=== PATIENT | male | born 1980 | race Caucasian/White ===

== ENCOUNTER 2018-12-14 14:24 | Emergency (ER) | payer BC ==
[~2018-12-14] VITALS: Ht 175.3 cm; Wt 98.0 kg
[2018-12-14 14:34] VITALS: Ht 175.3 cm; Wt 98.0 kg
[2018-12-14] MEDS ORDERED: morphine 4 MG/ML VIAL IV STA (15:11)
[2018-12-14] MEDS ORDERED: ONDANSETRON 4 MG INJ IV STA (15:11)
[2018-12-14] MEDS ORDERED: IOHEXOL 300MG/ML 150 ML BTL ONE (16:27)
[2018-12-14] MEDS ORDERED: SOD CHLORIDE 0.9% 100 ML ONE (16:27)
[2018-12-14] MEDS ORDERED: CIPROFLOXACIN 400MG/D5W 200 ML IVPB ONE (16:30)
[2018-12-14] MEDS ORDERED: ONDA8TAB14 PO (17:53)
[2018-12-14] MEDS ORDERED: METR500T PO (17:53)
[2018-12-14] MEDS ORDERED: CIPR500T4 PO (17:53)
[2018-12-14] MEDS ORDERED: TRAM50TA2 PO (17:53)
--- NOTE | 2018-12-14 17:57 | ERD ---
ER Documentation Chief Complaint Chief Complaint pt bib self with c/o right sided abd pain starting this am HPI 37-year-old male presents with right upper quadrant abdominal pain since this morning. Has nausea without vomiting. Denies any fevers, diarrhea, lower abdominal pain. Patient has a history of intermittent abdominal pain. He was treated for unspecified infection in his stomach several months ago, possibly H. pylori. He has a GI follow-up with a endoscopy scheduled for the next 1-2 weeks. He has never been told he has gallstones. ROS All systems reviewed and are negative except as per history of present illness. Medications Home Meds Active Scripts Ondansetron (Ondansetron Odt) 8 Mg Tab.rapdis, 8 MG PO Q6H PRN for NAUSEA AND/OR VOMITING, #6 TAB Prov:SIRIA RUIZ MD 12/14/18 Metronidazole* (Flagyl*) 500 Mg Tablet, 500 MG PO BID for 7 Days, TAB Prov:SIRIA RUIZ MD 12/14/18 Ciprofloxacin Hcl* (Ciprofloxacin Hcl*) 500 Mg Tablet, 500 MG PO BID for 7 Days, TAB Prov:SIRIA RUIZ MD 12/14/18 Tramadol HCl (Tramadol HCl) 50 Mg Tablet, 50 MG PO Q4 PRN for PAIN, #15 TAB Prov:SIRIA RUIZ MD 12/14/18 Allergies Allergies: Coded Allergies: No Known Allergy (Unverified , 12/14/18) PMhx/Soc Medical and Surgical Hx: pt denies Surgical Hx Hx Miscellaneous Medical Probl: Yes (Fatty Liver) Hx Alcohol Use: No Hx Substance Use: No Hx Tobacco Use: No Smoking Status: Never smoker FmHx Family History: No diabetes, No coronary disease, No other Physical Exam Vitals Vital Signs Date Temp Pulse Resp B/P (MAP) Pulse Ox O2 O2 Flow FiO2 Time Delivery Rate 12/14/18 98.3 66 16 150/78 98 14:34 (102) Physical Exam Const: No acute distress Head: Atraumatic Eyes: Normal Conjunctiva ENT: Normal External Ears, Nose and Mouth. Neck: Full range of motion. No meningismus. Resp: Clear to auscultation bilaterally Cardio: Regular rate and rhythm, no murmurs Abd: Soft, positive Panchal sign. No tenderness McBurney's point. No rebound., non distended. Normal bowel sounds Skin: No petechiae or rashes Back: No midline or flank tenderness Ext: No cyanosis, or edema Neur: Awake and alert Psych: Normal Mood and Affect Result Diagram: 12/14/18 1527 12/14/18 1527 Results 24 hrs Laboratory Tests Test 12/14/18 15:27 White Blood Count 6.1 10^3/ul Red Blood Count 4.95 10^6/ul Hemoglobin 14.4 g/dl Hematocrit 42.7 % Mean Corpuscular Volume 86.3 fl Mean Corpuscular Hemoglobin 29.1 pg Mean Corpuscular Hemoglobin Concent 33.7 g/dl Red Cell Distribution Width 12.4 % Platelet Count 255 10^3/UL Mean Platelet Volume 9.9 fl Immature Granulocytes % 0.200 % Neutrophils % 46.1 % Lymphocytes % 40.4 % Monocytes % 7.0 % Eosinophils % 5.6 % Basophils % 0.7 % Nucleated Red Blood Cells % 0.0 /100WBC Immature Granulocytes # 0.010 10^3/ul Neutrophils # 2.8 10^3/ul Lymphocytes # 2.5 10^3/ul Monocytes # 0.4 10^3/ul Eosinophils # 0.3 10^3/ul Basophils # 0.0 10^3/ul Nucleated Red Blood Cells # 0.0 10^3/ul Urine Color YELLOW Urine Clarity CLEAR Urine pH 6.0 Urine Specific [place] 1.015 Urine Ketones NEGATIVE mg/dL Urine Nitrite NEGATIVE mg/dL Urine Bilirubin NEGATIVE mg/dL Urine Urobilinogen NEGATIVE mg/dL Urine Leukocyte Esterase NEGATIVE Elvis/ul Urine Microscopic RBC 1 /HPF Urine Microscopic WBC 0 /HPF Urine Hemoglobin 1+ mg/dL Urine Glucose NEGATIVE mg/dL Urine Total Protein NEGATIVE mg/dl Sodium Level 140 mmol/L Potassium Level 4.0 mmol/L Chloride Level 106 mmol/L Carbon Dioxide Level 26 mmol/L Anion Gap 8 Blood Urea Nitrogen 13 mg/dl Creatinine 0.66 mg/dl Est Glomerular Filtrat Rate mL/min > 60 mL/min Glucose Level 88 mg/dl Calcium Level 9.4 mg/dl Total Bilirubin 0.3 mg/dl Direct Bilirubin 0.00 mg/dl Indirect Bilirubin 0.3 mg/dl Aspartate Amino Transf (AST/SGOT) 41 IU/L Alanine Aminotransferase (ALT/SGPT) 55 IU/L Alkaline Phosphatase 74 IU/L Total Protein 7.0 g/dl Albumin 4.4 g/dl Globulin 2.60 g/dl Albumin/Globulin Ratio 1.69 Lipase 91 U/L Current Medications Medications Dose Sig/Nori Start Time Status Last (Trade) Ordered Route PRN Stop Time Admin Dose Reason Admin Morphine 4 mg ONCE STAT 12/14/18 DC 12/14/18 Sulfate IV 15:11 12/14/18 15:52 (morphine) 15:12 Ondansetron 4 mg ONCE STAT 12/14/18 DC 12/14/18 HCl (Zofran IV 15:11 12/14/18 15:53 Inj) 15:12 200 ml @ ONCE ONCE 12/14/18 DC 12/14/18 Ciprofloxacin 200 mls/hr IVPB 16:30 12/14/18 16:27 / Dextrose 17:29 Sodium 100 ml @ ud STK-MED 12/14/18 DC 12/14/18 Chloride ONCE .ROUTE 16:27 12/14/18 16:35 16:28 Iohexol 150 ml STK-MED 12/14/18 DC 12/14/18 (Omnipaque ONCE .ROUTE 16:27 12/14/18 16:35 300mg/ ml) 16:28 500 mg ONCE ONCE 12/14/18 Metronidazole PO 18:00 12/14/18 (Flagyl) 18:01 Procedures/MDM Patient presents with right upper quadrant abdominal pain of uncertain etiology. Right upper quadrant ultrasound shows borderline gallbladder wall thickening without stones. BC, CMP, lipase normal. Patient was given morphine 4 mg IV, Zofran [address] abdomen pelvis was performed given the uncertain cause of symptoms which shows similar findings to ultrasound of thickening of the gallbladder wall. He has granulomatous disease which appears chronic in the liver. Patient was given Cipro 400 mg IV except for Flagyl 500 mg by mouth. Patient presents with right upper quadrant abdominal pain since this morning. Findings suggest possible acalculous cholecystitis without findings of leukocyt osis, abscess, surgical abdomen. We will treat empirically with Cipro, Flagyl, medication for pain, nausea and continued outpatient GI follow-up. Currently appears appropriate for outpatient management as he has good outpatient follow- up given the short duration of symptoms. He is advised to return for fevers, vomiting, worsening pain, new worsening symptoms otherwise with GI and primary doctor as scheduled. There is no evidence of appendicitis, surgical abdomen, additional emergent causes of presenting complaints. The patient was stable with no new complaints during the ER course. Clinically, there is no current evidence to suggest meningitis, sepsis, acute abdomen, pneumonia, stroke, acute coronary syndrome, pulmonary embolism, aortic dissection or any other emergent condition appearing to require further evaluation or hospitalization. Patient counseled regarding my diagnostic impression and care plan. Prior to discharge all questions answered. Pt agrees with treatment plan and understands strict return precautions. Pt is instructed to follow up with primary care provider helena akt 24-48 hours. Precautionary instructions provided including instructions to return to the ER if not improving or for any worsening or changing symptoms or concerns. Departure Diagnosis: Primary Impression: Abdominal pain Abdominal location: right upper quadrant Qualified Codes: R10.11 - Right upper quadrant pain Additional Impression: Cholecystitis Condition: Stable Patient Instructions: Abdominal Pain, Cholecystitis, Presumed Additional Instructions: Pain may be from cholecystitis and we will treat for this. No evidence of stones or abnormalities on blood work. See GI as scheduled. Recheck for fevers, vomiting, worsening pain, new worsening symptoms. Avoid fatty foods. SIRIA RUIZ MD Dec 14, 2018 17:57
[2018-12-14] MEDS ORDERED: metroNIDAZOLE 500 MG TAB PO ONE (18:00)
[2018-12-14 18:55] VITALS: BP 136/74; PULSE 60; RESP 20
== END 2018-12-14 18:56 | disposition home or self-care (01) ==
LOC: FTE 14:24
DX: K81.9 Cholecystitis, unspecified (principal)
CPT/HCPCS: 36415; 74177; 76705; 80053; 81001; 83690; 85025; 96365; 96366; 96375; 99285; J0744; J2270; J2405; Q9967

== ENCOUNTER 2018-12-23 18:33 | Emergency (ER) | payer BC ==
[~2018-12-23] VITALS: Ht 175.3 cm; Wt 95.0 kg
[~2018-12-23 18:33] MED LIST: CIPR500T4 PO; METR500T PO; ONDA8TAB14 PO; TRAM50TA2 PO
[2018-12-23 18:45] VITALS: Ht 175.3 cm; Wt 95.0 kg
[2018-12-23] MEDS ORDERED: SOD CHLORIDE 0.9% 1,000 ML IV STA (21:10)
[2018-12-23] MEDS ORDERED: ONDANSETRON 4 MG INJ IV STA (21:10)
[2018-12-23] MEDS ORDERED: HYDROmorphONE 1 MG/ML SYG IV STA (21:10)
--- NOTE | 2018-12-23 21:48 | ERD ---
ER Documentation Chief Complaint Chief Complaint AP X 2 DAYS. REPORTS HX GALLSTONES. HPI This is a 37-year-old male with a 2-month history of epigastric and right upper quadrant pain sometimes worse after meals sometimes not. Says that he was here last Monday and had a CT scan and ultrasound demonstrated thickened gallbladder wall but no gallstones. He was told he might have an infection and was given some antibiotics and he was sent home. He said the pain is still there and not much better. He also says he saw his primary care doctor who referred him to a GI doctor who subsequently did an EGD and showed positive H. pylori. He took the medication for this infection and he says he still not better. The pain as a gnawing and crampy pain at times without radiation. Some nausea but no vomiting and no diarrhea no fever. ROS All systems reviewed and are negative except as per history of present illness. Medications Home Meds Active Scripts Ondansetron (Ondansetron Odt) 8 Mg Tab.rapdis, 8 MG PO Q6H PRN for NAUSEA AND/OR VOMITING, #6 TAB Prov:SIRIA RUIZ MD 12/14/18 Metronidazole* (Flagyl*) 500 Mg Tablet, 500 MG PO BID for 7 Days, TAB Prov:SIRIA RUIZ MD 12/14/18 Ciprofloxacin Hcl* (Ciprofloxacin Hcl*) 500 Mg Tablet, 500 MG PO BID for 7 Days, TAB Prov:SIRIA RUIZ MD 12/14/18 Tramadol HCl (Tramadol HCl) 50 Mg Tablet, 50 MG PO Q4 PRN for PAIN, #15 TAB Prov:SIRIA RUIZ MD 12/14/18 Allergies Allergies: Coded Allergies: No Known Allergy (Unverified , 12/14/18) PMhx/Soc History of Surgery: Yes (right knee) Anesthesia Reaction: No Hx Neurological Disorder: No Hx Respiratory Disorders: No Hx Cardiac Disorders: No Hx Psychiatric Problems: No Hx Miscellaneous Medical Probl: Yes (GALLSTONES) Hx Alcohol Use: No Hx Substance Use: No Hx Tobacco Use: No Smoking Status: Never smoker FmHx Family History: No coronary disease Physical Exam Vitals Vital Signs Date Temp Pulse Resp B/P (MAP) Pulse Ox O2 O2 Flow FiO2 Time Delivery Rate 12/23/18 62 13 125/75 96 Room Air 23:00 (92) 12/23/18 98.2 21:42 12/23/18 63 16 133/87 99 Room Air 21:31 (102) 12/23/18 98.0 68 16 136/94 100 18:45 (108) Physical Exam Const: Well-developed, well-nourished Head: Atraumatic, normocephalic Eyes: Normal Conjunctiva, PERRLA, EOMI, normal sclera, no nystagmus ENT: Normal External Ears, Nose and Mouth, moist mucus membranes. Neck: Full range of motion. No meningismus, no lymphadenopathy. Resp: Clear to auscultation bilaterally, no wheezing, rhonchi, rales Cardio: Regular rate and rhythm, no murmurs, S1 S2 present Abd: Soft, mild to moderate epigastric and right upper quadrant tenderness, non distended. Normal bowel sounds, no guarding or rebound, no pulsitile abdominal masses or bruits Skin: No petechiae or rashes, no ecchymosis , no maculopapular rash Back: No midline or flank tenderness Ext: No cyanosis, or edema, FROM x 4, normal inspection, neurovascularly intact x 4 Neur: Awake and alert, STR 5/5 x 4, sensation intact x 4, no focal findings, cerebellum intact Psych: Normal Mood and Affect Result Diagram: 12/23/18204712/23/182047 Results 24 hrs Laboratory Tests Test 12/23/18 20:48 White Blood Count 6.3 10^3/ul Red Blood Count 5.18 10^6/ul Hemoglobin 15.3 g/dl Hematocrit 44.5 % Mean Corpuscular Volume 85.9 fl Mean Corpuscular Hemoglobin 29.5 pg Mean Corpuscular Hemoglobin Concent 34.4 g/dl Red Cell Distribution Width 12.8 % Platelet Count 251 10^3/UL Mean Platelet Volume 10.2 fl Immature Granulocytes % 0.200 % Neutrophils % 40.7 % Lymphocytes % 46.5 % Monocytes % 6.6 % Eosinophils % 5.2 % Basophils % 0.8 % Nucleated Red Blood Cells % 0.0 /100WBC Immature Granulocytes # 0.010 10^3/ul Neutrophils # 2.6 10^3/ul Lymphocytes # 3.0 10^3/ul Monocytes # 0.4 10^3/ul Eosinophils # 0.3 10^3/ul Basophils # 0.1 10^3/ul Nucleated Red Blood Cells # 0.0 10^3/ul Sodium Level 140 mmol/L Potassium Level 4.0 mmol/L Chloride Level 105 mmol/L Carbon Dioxide Level 26 mmol/L Anion Gap 9 Blood Urea Nitrogen 16 mg/dl Creatinine 0.68 mg/dl Est Glomerular Filtrat Rate mL/min > 60 mL/min Glucose Level 95 mg/dl Calcium Level 9.3 mg/dl Total Bilirubin 0.4 mg/dl Direct Bilirubin 0.00 mg/dl Indirect Bilirubin 0.4 mg/dl Aspartate Amino Transf (AST/SGOT) 69 IU/L Alanine Aminotransferase (ALT/SGPT) 49 IU/L Alkaline Phosphatase 72 IU/L Total Protein 6.7 g/dl Albumin 4.1 g/dl Globulin 2.60 g/dl Albumin/Globulin Ratio 1.57 Lipase 94 U/L Current Medications Medications Dose Sig/Nori Start Time Status Last (Trade) Ordered Route PRN Stop Time Admin Dose Reason Admin Sodium 1,000 ml @ Q1H STAT 12/23/18 DC 12/23/18 Chloride 1,000 mls/hr IV 21:10 21:36 12/23/18 22:09 1 mg ONCE STAT 12/23/18 DC 12/23/18 Hydromorphone IV 21:10 21:37 HCl 12/23/18 21:11 (Dilaudid) Ondansetron 4 mg ONCE STAT 12/23/18 DC 12/23/18 HCl (Zofran IV 21:10 21:36 Inj) 12/23/18 21:11 Procedures/MDM Ordering MD: JENNIFER PANIAGUA DO Location: E/R Room/Bed: PROCEDURE: Abdominal ultrasound, limited. CLINICAL INDICATION: Abdominal pain. TECHNIQUE: Multiple real-time images were acquired of the patient's right upper abdomen utilizing a high resolution transducer. COMPARISON: 12/14/2018. FINDINGS: The liver demonstrates normal echogenicity and size measuring 17.6 cm. There is no focal mass or intrahepatic biliary ductal dilatation. The portal vein is patent. The gallbladder is not distended. No gallstones are identified. There is no pericholecystic fluid or gallbladder wall thickening. The common bile duct measures 3.0 mm in maximal dimension. The pancreas is obscured by overlying bowel gas. No free fluid is identified. The right kidney is normal size and echogenicity measuring 10.1 cm. There is no focal renal mass or echogenic calculus identified. There is no obstructive u ropathy. IMPRESSION: Pancreas obscured by overlying bowel gas. Otherwise unremarkable right upper abdominal ultrasound. .Supa Johnston MD, MD Date Time Electronically viewed and signed by .Supa Johnston MD, MD on 12/23/2018 23:46 .T/ CC: JENNIFER PANIAGUA DO [id number] Patient's ultrasound shows no evidence of cholecystitis or other pathology. He has chronic abdominal pain he does have a GI doc. Probably needs to get retested for H. pylori as this could be still lingering. This is more likely the issue. He also could use a HIDA scan to evaluate for gallbladder dysfunction. I will treat him with some Bentyl, omeprazole and [place] Departure Diagnosis: Primary Impression: Abdominal pain Abdominal location: epigastric Qualified Codes: R10.13 - Epigastric pain Condition: Stable JENNIFER PANIAGUA DO Dec 23, 2018 21:48
[2018-12-24] MEDS ORDERED: OMEP40CA6 PO (00:11)
[2018-12-24] MEDS ORDERED: DICY10CA40 PO (00:11)
[2018-12-24] MEDS ORDERED: HYDR-3980 PO (00:11)
[2018-12-24 00:30] VITALS: BP 130/90; PULSE 65; RESP 18
== END 2018-12-24 00:30 | disposition home or self-care (01) ==
LOC: FTE 18:33 → E/R 12-24 00:30
DX: R10.13 Epigastric pain (principal)
CPT/HCPCS: 76705; 80053; 83690; 85025; 96361; 96374; 96375; 99285; J1170; J2405; J7030